=== PATIENT | male | born 2000 | race Two or more races ===

== ENCOUNTER 2025-01-23 19:47 | Emergency (ER) | payer OTHER, SELFPAY ==
[2025-01-23 19:49] VITALS: BMI 24.5
[2025-01-23 20:41] VITALS: BP 139/67; PULSE 63; RESP 17; TEMP 36.8; O2SAT 99
--- NOTE | 2025-01-23 20:44 | PD.EDABDPN ---
ED Abdominal Pain RME/HPI General Chief Complaint: Abdominal Pain Stated complaint: NGO, ABD PAIN, VOMITING Time seen by provider: 01/23/25 19:50 Arrival date/time: 01/23/25 19:47 Source: patient, RN notes reviewed and old records reviewed Mode of arrival: ambulatory Limitations: no limitations RME / HPI RME / HPI narrative: 24yom presents to ED for epigastric pain and intermittent nausea/vomiting since yesterday. Brother and mother currently with similar symptoms, brother diagnosed with stomach flu yesterday. Patient's c/o mild headache. No fever, cough, diarrhea or dizziness reported. Patient took Tylenol this morning with little relief. Related Data Previous Rx's ?Medication ?Instructions ?Recorded albuterol sulfate 90 mcg/actuation 2 puff inhalation Q4H PRN 10/16/17 aerosol inhaler shortness of breath or wheezing #18 grams dicyclomine 20 mg tablet 20 mg PO Q6HR PRN abdominal pain 01/23/25 #20 tabs ibuprofen 600 mg tablet 600 mg PO Q6H PRN fever or pain 01/23/25 #20 tabs ondansetron 4 mg disintegrating 4 mg PO Q6H PRN nausea and 01/23/25 tablet vomiting #10 tabs Allergies Allergy/AdvReac Type Severity Reaction Status Date / Time No Known Allergies Allergy Verified 01/23/25 19:49 Review of Systems Review of Systems Systems Reviewed: All systems reviewed, normal except as documented Constitutional Constitutional: Denies chills, Denies fever(s) and Reports headache(s) ENT Ears, Nose, Mouth, and Throat: Denies dizziness, Reports headache(s), Denies nasal congestion and Denies sore throat Gastrointestinal Gastrointestinal: Reports abdominal pain, Denies loose stools, Reports nausea and Reports vomiting Neurologic Neurologic: Denies dizziness and Reports headache(s) Past Medical History Surgical History OTHER SURGICAL HX: denies pshx Social History SMOKING STATUS: Never smoker SUBSTANCE USE: does not use ALCOHOL: Never Past Medical History Comments PMH COMMENT: denies pmhx ED Exam General Limitations: Present no limitations General appearance: Present alert and in no apparent distress Head Head exam: Present atraumatic and normocephalic Eye Eye exam: Present normal appearance, PERRL and EOMI ENT ENT exam: Present normal exam and mucous membranes moist Neck Neck exam: Present normal inspection and full ROM Chest Chest inspection: Present normal inspection and symmetric chest wall rise Respiratory Respiratory exam: Present normal lung sounds bilaterally; Absent respiratory distress Cardiovascular Cardiovascular exam: Present regular rate and normal rhythm Abdominal Exam Abdominal exam: Present soft and tenderness (Epigastric, mild); Absent distention, guarding or rebound Extremities Exam Extremities exam: Present normal inspection and full ROM Back Exam Back exam: Absent CVA tenderness (R) or CVA tenderness (L) Neurological Exam Neurological exam: Present alert and oriented X3 Psychiatric Psychiatric exam: Present normal affect and normal mood Skin Skin exam: Present warm, dry, intact and normal color Course Quality Measures none Orders Category Date Time Status Bedside COVID-19 Antigen Test NOW Care 01/23/25 20:43 Completed Bedside Influenza A&B Antigen Test NOW Care 01/23/25 20:43 Completed CBC Stat Lab 01/23/25 20:49 Completed CMP [Comprehensive Metabolic Panel] Stat Lab 01/23/25 20:49 Completed Lipase Stat Lab 01/23/25 20:49 Completed UA [Urinalysis] Stat Lab 01/23/25 21:26 Completed Ketorolac Inj [Toradol Inj] Med 01/23/25 20:43 Discontinued 30 mg IM X1 ONE Lidocaine 2% Viscous [Xylocaine 2% Viscous] Med 01/23/25 20:43 Discontinued 15 ml PO X1 ONE Ondansetron Odt [Zofran Odt] Med 01/23/25 20:43 Discontinued 4 mg PO X1 ONE mg Hyd/Al Hyd/Aidan Susp [Maalox Susp] Med 01/23/25 20:43 Discontinued 30 ml PO X1 ONE Vital Signs Vital signs: Vital Signs Temperature 98.3 F 01/23/25 20:41 Pulse Rate 63 01/23/25 20:41 Respiratory Rate 17 01/23/25 20:41 Blood Pressure 139/67 H 01/23/25 20:41 Pulse Oximetry (%) 99 01/23/25 20:41 Oxygen Delivery Method Room Air 01/23/25 20:41 Abdominal Pain MDM MDM Narrative MDM Narrative:: 24yom presents to ED for epigastric pain and intermittent nausea/vomiting since yesterday. Brother and mother currently with similar symptoms, brother diagnosed with stomach flu yesterday. Patient's c/o mild headache. No fever, cough, diarrhea or dizziness reported. Patient took Tylenol this morning with little relief. Patient reassessed. He is feeling better, symptoms improved, tolerating po. ED workup reassuring. Suspect viral etiology of symptoms. Encouraged adequate fluids, symptomatic treatment prn. Stable for dc, RTED precautions given. Patient data External records reviewed:: [facility] previous records (10/16/2017 ED visit for shortness of breath) Clinical information provided by:: patient Social determinants that could affect healthcare access:: other (specify) (Poor access to healthcare) Patient has the following chronic illnesses:: None How is presenting disease/condition affected by chronic disease/condition?: no chronic disease Evaluation data The following diagnostics were reviewed and interpreted by me:: lab results Lab and/or radiology exams considered but not ordered:: CT abdomen/pelvis: Nonsurgical abdomen on exam Interpretation Summary: No leukocytosis Lipase wnl K 3.2, mild hyponatremia UA negative ketones Medications / Prescriptions Medications or Prescriptions considered but not ordered:: No antibiotics recommended at this time Medication administrations:: Medication Administration History Discontinued Medications Al Hydrox/Mg Hydrox/Simethicone (Mg Hyd/Al Hyd/Aidan (Maalox Reg) Susp 30 Ml Udc) 30 ml PO X1 ONE Stop: 01/23/25 20:44 Last Admin: 01/23/25 21:26 Dose: 30 ml Documented By: NAIMA Ketorolac Tromethamine (Ketorolac Inj 60 Mg/2 Ml Vial) 30 mg IM X1 ONE Stop: 01/23/25 20:44 Last Admin: 01/23/25 21:28 Dose: 30 mg Documented By: NAIMA Lidocaine HCl (Lidocaine Viscous 2% 15 Ml Udc) 15 ml PO X1 ONE Stop: 01/23/25 20:44 Last Admin: 01/23/25 21:26 Dose: 15 ml Documented By: NAIMA Ondansetron HCl (Ondansetron Odt 4 Mg Tabrap) 4 mg PO X1 ONE; Protocol Stop: 01/23/25 20:44 Last Admin: 01/23/25 21:23 Dose: 4 mg Documented By: NAIMA Above medications administered in ED Consultations Consultation(s) initiated? (list below): No Diagnosis Differential diagnosis abdominal pain: other (COVID, flu, viral illness, gastritis, cholelithiasis, viral illness, gastroenteritis) Most likely diagnosis given after review of the tests above:: nausea and vomiting, viral illness Admission Indicated Admission indicated?: not indicated Admission Request Was there a request for admission?: No Disposition Plan Disposition Plan: Discharge Discharge Attestation Discharge Attestation: The patient and all family members were given an opportunity to ask questions and understood the discharge instructions. Discharge instructions specifically effects, indications for sooner follow up or return to the emergency department, and the expected course of current diagnosis. Patient condition: Stable Discharge Plan Plan Patient Disposition: HOME (Self Care) Patient condition on transfer: Stable Prescriptions/Referrals Prescriptions/Med Rec: New ondansetron 4 mg tablet,disintegrating 4 mg PO Q6H PRN (Reason: nausea and vomiting) Qty: 10 0RF ibuprofen 600 mg tablet 600 mg PO Q6H PRN (Reason: fever or pain) Qty: 20 0RF dicyclomine 20 mg tablet 20 mg PO Q6HR PRN (Reason: abdominal pain) Qty: 20 0RF No Action albuterol sulfate 90 mcg/actuation HFA aerosol inhaler 2 puff INH Q4H PRN (Reason: shortness of breath or wheezing) Qty: 18 0RF Rx Instructions: administer with spacer Referrals: Dave Small PA-C [Primary Care Provider] - In 1 week Problem List Clinical Impression: Nausea and vomiting, Abdominal pain, Viral illness Patient/Caregiver Discharge Instructions Education Materials: ED Vomiting (Adult) Print Language: Georgian Stand Alone Forms: Edie Award Info., Patient Portal Info Letter PRESTON/PRATIK Supervising Physician KAELYN Supervising Physician: Ritu
[2025-01-23 21:17] LABS: Basophils % (Auto) 1 % (0-2.5); Eosinophils # (Auto) 0.2 Thou/mm3 (0.0-0.5); Eosinophils % (Auto) 2 % (0-10); Hematocrit 43.3 % (41.0-53.0); Immature Granulocytes % (Auto) 1 % (0-0); Immature Granulocytes Auto 0.05 Thou/mm3 (0.00-0.00); Lymphocytes # (Auto) 1.9 Thou/mm3 (1.0-4.8); Lymphocytes % (Auto) 24 % (10-50); Mean Corpuscular HGB Conc 34.6 g/dl (31.0-37.0); Mean Corpuscular Hemoglobin 30.8 pg (25.0-35.0); Mean Corpuscular Volume 89 fL (80-100); Monocytes # (Auto) 1.1 Thou/mm3 (0.0-0.8); Monocytes % (Auto) 14 % (0-12); Neutrophils # (Auto) 4.9 Thou/mm3 (1.8-7.7); Neutrophils % (Auto) 60 % (37-80); Nucleated Red Blood Cell % 0 /100 WBC (0); Platelet Count 264 Thou/mm3 (140-440); RDW Standard Deviation 39.8 fL (35.1-43.9); Red Blood Count 4.87 Miln/mm3 (4.50-5.90); White Blood Count 8.2 Thou/mm3 (3.8-10.6)
[2025-01-23] MEDS: ONDANSETRON ODT 4 MG TABRAP PO (21:23)
[2025-01-23] MEDS: LIDOCAINE VISCOUS 2% 15 ML UDC PO (21:26)
[2025-01-23] MEDS: MG HYD/AL HYD/SIME (Maalox Reg) SUSP 30 ML UDC PO (21:26)
[2025-01-23] MEDS: KETOROLAC INJ 60 MG/2 ML VIAL 30 MG IM (21:28)
[2025-01-23 21:34] LABS: Collection Type, Urine Clean Catch; Squamous Epithelial Cell,Urine 0 /hpf (0-5)
[2025-01-23 21:37] LABS: Alanine Aminotransferase 88 U/L (10-49); Albumin, Serum 4.5 gm/dL (3.5-5.0); Alkaline Phosphatase 91 U/L (46-116); Anion Gap 9 (7-16); Aspartate Amino Transferase 39 U/L (0-34); BUN/Creatinine Ratio 13 Ratio (12-20); Bilirubin,Total 0.6 mg/dL (0.3-1.2); Blood Urea Nitrogen 12 mg/dL (9-23); Calcium 8.9 mg/dL (8.3-10.6); Calcium (Corrected) 8.9 mg/dL (8.5-10.1); Carbon Dioxide 23.9 mMol/L (20.0-31.0); Chloride 110 mMol/L (98-107); Creatinine (Component) 0.9 mg/dL (0.6-1.3); Estimated Creatinine Clearance 124.6 mL/min (>60); Globulin 2.3 gm/dL (2.3-3.5); Glucose 86 mg/dL (74-106); Lipase 25 U/L (12-53); Osmolality,Calculated 283 (275-295); Potassium 3.2 mMol/L (3.4-5.1); Sodium 143 mMol/L (136-145); Total Protein 6.8 gm/dL (5.7-8.2); eGFR > 60 See Note
[2025-01-23 21:39] LABS: Bilirubin,Urine Negative (Negative); Blood,Urine Negative (Negative); Clarity,Urine Clear (Clear/Hazy); Color,Urine Lt-Yellow (Lt Yel-Yel); Glucose, Urine Negative (Negative); Ketones,Urine Negative (Negative); Leukocyte Esterase,Urine Negative (Negative); Nitrite,Urine Negative (Negative); Protein,Urine Negative (Neg - Trace); RBC,Urine 3 /hpf (0-3); Specific Gravity,Urine 1.021 (1.001-1.035); Urobilinogen,Urine Negative mg/dL (0.0-1.0); WBC,Urine 1 /hpf (0-5)
== END 2025-01-23 22:39 | disposition home or self-care (01) ==
PROVIDERS: Physician Assistant; Emergency Provider Emergency Medicine; PCP Physician Assistant
DX: B34.9 Viral infection, unspecified (principal); E87.1 Hypo-osmolality and hyponatremia
CPT/HCPCS: 36415; 80053; 81001; 83690; 85025; 87400; 87811; 96372; 99283; J1885; J3490; Q0162; A9270